=== PATIENT | female | born 1990 | race Hispanic/Latino ===

== ENCOUNTER 2017-11-25 13:05 | Emergency (ER) | payer MEDICAID, OTHER ==
[2017-11-25 13:44] LABS: HCG,QUAL RESULT NEGATIVE (NEGATIVE)
[2017-11-25 13:45] LABS: APPEARANCE,URINE Clear (CLEAR); BILIRUBIN,URINE Negative (NEGATIVE); COLOR,URINE Yellow (YELLOW); GLUCOSE, URINE (UA) Negative (NEGATIVE); KETONES,URINE Negative (NEGATIVE); LEUKOCYTE ESTERASE ,URINE Large (NEGATIVE); NITRATE,URINE Negative (NEGATIVE); OCCULT BLOOD,URINE Nonhemolyzed Trace (NEGATIVE); PROTEIN,URINE Negative (NEGATIVE); UROBILINOGEN,URINE 0.2 mg/dL (0.2-1.0)
[2017-11-25 13:53] LABS: BACTERIA,URINE Rare /HPF (None Seen); RBC,URINE 0-1 /HPF (0-1); SQUAMOUS EPITHELIAL CELL,UR Rare /HPF (0-2)
[2017-11-25] MEDS ORDERED: LIDOCAINE HCL-MPF 1% 2ML VIAL ONE (14:13)
[2017-11-25] MEDS ORDERED: AZITHROMYCIN 250 MG TABLET PO ONE (14:14)
[2017-11-25] MEDS ORDERED: CEFTRIAXONE SODIUM 1 GM ONE (14:14)
== END 2017-11-25 15:15 | disposition home or self-care (01) ==
LOC: EDH 13:05
DX: N34.2 Other urethritis (principal)
CPT/HCPCS: 81001; 81025; 87486; 87797; 96372; 99284; J0696; J3490